=== PATIENT | female | born 1945 | race Caucasian/White ===

== ENCOUNTER 2022-05-08 04:41 | Day surgery (SDC) | payer OTHER, BC ==
[2022-05-05 15:49] VITALS: BMI 27.4
[2022-05-08 10:04] VITALS: TEMP 98.2
[2022-05-08 10:38] VITALS: BP 138/85; PULSE 75; RESP 20
== END 2022-05-08 10:53 | disposition home or self-care (01) ==
LOC: JASU-ENDO 04:41
PROVIDERS: ATTEND Internal Medicine Gastroenterology
PROC: 0DBL8ZX Excision of Transverse Colon, Via Natural or Artificial Opening Endoscopic, Diagnostic (ICD-10-PCS; 2022-05-08)
PROC: 0DBH8ZX Excision of Cecum, Via Natural or Artificial Opening Endoscopic, Diagnostic (ICD-10-PCS; principal; 2022-05-08 10:00)
DX: Z12.11 Encounter for screening for malignant neoplasm of colon (principal); D12.0 Benign neoplasm of cecum; D12.3 Benign neoplasm of transverse colon; K64.8 Other hemorrhoids; K57.30 Diverticulosis of large intestine without perforation or abscess without bleeding
CPT/HCPCS: 88305-TC